=== PATIENT | female | born 1980 | race Caucasian/White ===

== ENCOUNTER 2018-05-14 10:15 | Emergency (ER) | payer SELFPAY | END 2018-05-14 10:34 | disposition home or self-care (01) | LOC: BURERS 10:15 | DX: M54.5 Low back pain (principal); F17.210 Nicotine dependence, cigarettes, uncomplicated; F31.9 Bipolar disorder, unspecified; F20.9 Schizophrenia, unspecified; G43.909 Migraine, unspecified, not intractable, without status migrainosus | CPT/HCPCS: 99283 ==

== ENCOUNTER 2018-07-02 20:59 | Emergency (ER) | payer SELFPAY ==
[2018-07-02] MEDS ORDERED: Magnesium Sulfate 2 GM/100 ML BAG ONE (21:23)
[2018-07-02] MEDS ORDERED: methylPREDNISolone Sod Succ/PF 125 MG/2 ML VIAL ONE (21:23)
[2018-07-02] MEDS ORDERED: Acetaminophen 500 MG TAB ONE (21:23)
[2018-07-02] MEDS ORDERED: Ondansetron PF 4 MG/2 ML Vial ONE (21:23)
[2018-07-02] MEDS ORDERED: diphenhydrAMINE 50 MG/ML VIAL ONE (21:23)
[2018-07-02 21:30] LABS: BHCG - Serum Negative (NEGATIVE); Pregs Control Background? CLEAR/WHITE (CLR/WHITE); Pregs Control Bar Appear? YES (CONTROL BAR)
== END 2018-07-02 21:33 | disposition home or self-care (01) ==
LOC: BURERS 20:59
DX: G43.909 Migraine, unspecified, not intractable, without status migrainosus (principal); J45.909 Unspecified asthma, uncomplicated; F17.210 Nicotine dependence, cigarettes, uncomplicated; F20.9 Schizophrenia, unspecified
CPT/HCPCS: 84703; 96374; 96375; J1200; J2405; J2930; J3475

== ENCOUNTER 2018-07-10 11:49 | Emergency (ER) | payer OTHER, SELFPAY | END 2018-07-10 12:23 | disposition home or self-care (01) | LOC: BURERS 11:49 | DX: M54.41 Lumbago with sciatica, right side (principal); F17.210 Nicotine dependence, cigarettes, uncomplicated; F31.9 Bipolar disorder, unspecified; F20.9 Schizophrenia, unspecified | CPT/HCPCS: 99283 ==

== ENCOUNTER 2018-07-23 11:05 | Outpatient (CLI) | payer OTHER ==
--- NOTE | 2018-07-27 08:18 | RAD ---
Exam: 3 views of the lumbosacral spine HISTORY: Low back pain COMPARISON: None FINDINGS: There are five lumbar type vertebra. No acute fracture or subluxation. There are small marginal osteophytes affecting all lumbar intervertebral levels. Vertebral body heigh ts and disc spaces are preserved. SI joints are normal appearing. Bowel gas pattern is unobstructed. IMPRESSION: No acute fracture or subluxation demonstrated. 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
== END 2018-07-23 11:06 | disposition home or self-care (01) ==
LOC: BURRAD 11:05
PROVIDERS: ATTEND Nurse Practitioner Family
DX: M54.41 Lumbago with sciatica, right side (principal); M51.36 Other intervertebral disc degeneration, lumbar region
CPT/HCPCS: 72100

== ENCOUNTER 2018-09-07 00:15 | Emergency (ER) | payer OTHER, SELFPAY ==
[2018-09-07] MEDS ORDERED: Ketorolac Tromethamine 60 MG/2 ML VIAL ONE (00:39)
[2018-09-07] MEDS ORDERED: Acetaminophen/Codeine 30-300mg Tablet ONE (00:39)
== END 2018-09-07 00:48 | disposition home or self-care (01) ==
LOC: BURERS 00:15
DX: M54.5 Low back pain (principal); F17.210 Nicotine dependence, cigarettes, uncomplicated
CPT/HCPCS: 96372; 99283; J1885

== ENCOUNTER 2018-10-23 10:43 | Emergency (ER) | payer OTHER ==
[2018-10-23] MEDS ORDERED: AMOXicillin 250 MG CAP ONE (11:00)
== END 2018-10-23 11:08 | disposition home or self-care (01) ==
LOC: BURERS 10:43
DX: H66.92 Otitis media, unspecified, left ear (principal); M54.5 Low back pain; G89.29 Other chronic pain; F17.210 Nicotine dependence, cigarettes, uncomplicated; Z79.891 Long term (current) use of opiate analgesic
CPT/HCPCS: 99282

== ENCOUNTER 2018-10-25 19:37 | Emergency (ER) | payer OTHER | END 2018-10-25 20:05 | disposition home or self-care (01) | LOC: BURERS 19:37 | DX: M54.5 Low back pain (principal); F17.210 Nicotine dependence, cigarettes, uncomplicated; Z79.899 Other long term (current) drug therapy | CPT/HCPCS: 99283 ==

== ENCOUNTER 2018-12-11 22:36 | Emergency (ER) | payer OTHER, SELFPAY ==
[2018-12-11] MEDS ORDERED: traMADol HCl 50 MG TAB ONE (23:14)
== END 2018-12-11 23:25 | disposition home or self-care (01) ==
LOC: BURERS 22:36
DX: K02.9 Dental caries, unspecified (principal); F17.210 Nicotine dependence, cigarettes, uncomplicated; G43.909 Migraine, unspecified, not intractable, without status migrainosus
CPT/HCPCS: 99282

== ENCOUNTER 2019-01-02 23:26 | Emergency (ER) | payer SELFPAY ==
[2019-01-02] MEDS ORDERED: traMADol HCl 50 MG TAB ONE (23:34)
--- NOTE | 2019-01-03 07:14 | RAD ---
RIGHT FOOT 3 VIEWS: Date: 01/02/19 No fracture or periosteal reaction seen. The bones and joints were unremarkable in appearance. IMPRESSION: No acute findings. POS: HOME
== END 2019-01-02 23:50 | disposition home or self-care (01) ==
LOC: BURERS 23:26
DX: S93.601A Unspecified sprain of right foot, initial encounter (principal); G43.909 Migraine, unspecified, not intractable, without status migrainosus; F17.210 Nicotine dependence, cigarettes, uncomplicated; X50.1XXA Overexertion from prolonged static or awkward postures, initial encounter

== ENCOUNTER 2019-01-09 20:32 | Emergency (ER) | payer SELFPAY ==
[2019-01-09] MEDS ORDERED: traMADol HCl 50 MG TAB ONE (20:50)
[2019-01-09] MEDS ORDERED: Cephalexin 250 MG CAP ONE (20:50)
== END 2019-01-09 20:55 | disposition home or self-care (01) ==
LOC: BURERS 20:32
DX: K03.81 Cracked tooth (principal); K02.9 Dental caries, unspecified; M19.90 Unspecified osteoarthritis, unspecified site; G43.909 Migraine, unspecified, not intractable, without status migrainosus; F17.210 Nicotine dependence, cigarettes, uncomplicated
CPT/HCPCS: 99282

== ENCOUNTER 2019-02-12 12:57 | Emergency (ER) | payer OTHER | END 2019-02-12 13:09 | disposition home or self-care (01) | LOC: BURERS 12:57 | DX: K02.9 Dental caries, unspecified (principal); G43.909 Migraine, unspecified, not intractable, without status migrainosus; F43.10 Post-traumatic stress disorder, unspecified; F17.210 Nicotine dependence, cigarettes, uncomplicated | CPT/HCPCS: 99281 ==

== ENCOUNTER 2019-03-28 23:52 | Emergency (ER) | payer OTHER, SELFPAY ==
[2019-03-29] MEDS ORDERED: traMADol HCl 50 MG TAB ONE (00:10)
[2019-03-29] MEDS ORDERED: Ondansetron ODT 4 MG TAB ONE (00:10)
[2019-03-29] MEDS ORDERED: Ibuprofen 200 MG TAB ONE (00:10)
[2019-03-29] MEDS ORDERED: Dicyclomine 20 MG TAB ONE (00:10)
== END 2019-03-29 00:20 | disposition home or self-care (01) ==
LOC: BURERS 23:52
DX: H60.92 Unspecified otitis externa, left ear (principal); K52.9 Noninfective gastroenteritis and colitis, unspecified; F17.210 Nicotine dependence, cigarettes, uncomplicated; G43.909 Migraine, unspecified, not intractable, without status migrainosus; F43.10 Post-traumatic stress disorder, unspecified
CPT/HCPCS: 99283; Q0162